=== PATIENT | female | born 1980 | race Caucasian/White ===

== ENCOUNTER 2019-11-27 00:54 | Emergency (ER) | payer OTHER ==
[~2019-11-27] VITALS: Ht 165.1 cm; Wt 95.2 kg
[~2019-11-27 00:54] MED LIST: NAPROXEN500 MG PO; NORCO 5-325 TA1 EACH PO; POTASSIUM CHLO20 ME1 PO; ZOFRAN ODT4 MG PO
--- NOTE | 2019-11-28 06:21 | EKG ---
[facility] [address] [place], [place] [address] Signed Normal sinus rhythm Normal ECG No previous ECGs available Confirmed by RAYMOND OLIVARES MD ([id number]) on 11/28/2019 6:21:14 AM Electronically Signed By: RAYMOND OLIVARES MD 11/28/19620 PATIENT NAME: CANDELARIO GOLDSTEIN Electrocardiogram DATE OF : 78 PHYSICIAN: RAYMOND OLIVARES MD REPORT #: [id number] REPORT IS CONFIDENTIAL AND NOT TO BE RELEASED WITHOUT AUTHORIZATION
== END 2019-11-27 03:10 | disposition home or self-care (01) ==
LOC: ED 00:54
DX: I10 Essential (primary) hypertension (principal); F17.200 Nicotine dependence, unspecified, uncomplicated; Z88.0 Allergy status to penicillin
CPT/HCPCS: 71046; 80053; 81001; 85025; 93005; 93010; 99284-25

== ENCOUNTER 2022-08-26 13:23 | Emergency (ER) | payer OTHER ==
[~2022-08-26] VITALS: Ht 165.1 cm; Wt 108.9 kg
== END 2022-08-26 16:34 | disposition home or self-care (01) ==
LOC: ED 13:23
DX: S86.012A Strain of left Achilles tendon, initial encounter (principal); X50.9XXA Other and unspecified overexertion or strenuous movements or postures, initial encounter; Y99.0 Civilian activity done for income or pay; F17.200 Nicotine dependence, unspecified, uncomplicated; Z88.0 Allergy status to penicillin
CPT/HCPCS: 73610; 99283-25

== ENCOUNTER 2025-02-22 22:29 | Emergency (ER) | payer OTHER ==
[~2025-02-22] VITALS: Ht 165.1 cm; Wt 115.7 kg
[2025-02-22 23:45] LABS: BASOPHILS 0.8 % (0-2); EOSINOPHILS 2.4 % (0-6); HEMATOCRIT 38.1 % (35.0-50.0); HEMOGLOBIN 13.4 g/dL (12.0-18.0); LYMPHOCYTES 35.7 % (24-44); MCH 30.9 (27-36); MCHC 35.1 g/dl (30-36); MONOCYTES 7.3 % (0-12); NEUTROPHILS 53.8 % (39-80); PLATELET COUNT 240 K/uL (140-440); RBC 4.33 M/ul (4.3-5.7); RDW 12.6 (10.5-15.0)
[2025-02-22] MEDS ORDERED: MORPHINE SULFATE 4 MG/ML VIAL IV ONE (23:45)
[2025-02-22] MEDS ORDERED: METOPROLOL TARTRATE 5 MG/5 ML VIAL IV ONE (23:45)
[2025-02-22] MEDS ORDERED: ondansetron HCL 4 MG/2 ML VIAL IV ONE (23:45)
[2025-02-22] MEDS ORDERED: LACTATED RINGER'S 1,000 ML IV ONE (23:45)
[2025-02-23 00:07] LABS: ALBUMIN 3.9 g/dL (3.4-5.0); ALBUMIN/GLOBULIN RATIO 1.22 (1.1-2.4); ANION GAP 12.7 (7-21); BILIRUBIN, TOTAL 0.3 mg/dL (0.2-1.0); BUN/CREATININE RATIO 14.47 (6.0-28.6); CALCIUM 8.7 mg/dL (8.5-10.1); CREATININE, SERUM 0.76 mg/dL (0.55-1.02); POTASSIUM 3.7 mmol/L (3.5-5.1); PROTEIN, TOTAL 7.1 g/dL (6.4-8.2)
[2025-02-23 01:25] LABS: BILIRUBIN, URINE NEGATIVE (negative); BLOOD/HGB, URINE TRACE-L (Negative); KETONE, URINE NEGATIVE (Negative); LEUK ESTERASE, URINE LARGE (negative); NITRITE, URINE NEGATIVE (negative)
[2025-02-23 01:36] LABS: BACTERIA, URINE 2+ /hpf (negative); CASTS, URINE NONE SEEN \\lpf; CRYSTALS, URINE NONE SEEN (0-1+); EPITHELIAL CELLS, URINE SQUAMOUS 2+ /lpf (0-1+); WHITE BLOOD CELLS, URINE 21-40 /HPF (0-5)
[2025-02-23 01:37] LABS: COLLECTION TYPE, URINE CLEAN CATCH; REFLEX CULTURE, URINE No (No)
[2025-02-23 02:09] VITALS: BP 118/85
== END 2025-02-23 02:08 | disposition home or self-care (01) ==
LOC: ED 22:29
PROVIDERS: Internal Medicine
DX: G43.909 Migraine, unspecified, not intractable, without status migrainosus (principal); Z88.0 Allergy status to penicillin; F17.200 Nicotine dependence, unspecified, uncomplicated
CPT/HCPCS: 36415; 70450; 80053; 81001; 83735; 84703; 85025; 96374; 96375; 99284-25; J2270; J2405; J7121

== ENCOUNTER 2025-09-15 19:00 | Emergency (ER) | payer OTHER ==
[~2025-09-15] VITALS: Ht 165.1 cm; Wt 96.7 kg
[2025-09-15] MEDS ORDERED: TOPAMAX50 MG PO (19:47)
[2025-09-15] MEDS ORDERED: ZEPBOUND5 MG/0.5 M SUB-Q (19:49)
[2025-09-15 19:52] LABS: BASOPHILS 0.4 % (0.1-1.2); EOSINOPHILS 1.5 % (0.7-5.8); LYMPHOCYTES 28.0 % (19.3-51.7); MCH 30.6 PG (25.6-32.2); MCHC 33.7 g/dL (32.2-35.5); MCV 90.9 fL (79.4-94.8); MONOCYTES 6.9 % (4.7-12.5); NEUTROPHILS 63.0 % (34.0-71.1); RBC 4.41 M/uL (3.93-5.22)
[2025-09-15 20:02] LABS: ALT (SGPT) 50.0 U/L (14-59); AST (SGOT) 23.0 U/L (15-37); GLOMERULAR FILTRATION RATE,EST 109.0 mL/min (>60); PROTEIN, TOTAL 7.4 g/dL (6.4-8.2); UREA NITROGEN 26.0 mg/dL (7-18)
[2025-09-15 21:17] LABS: BLOOD/HGB, URINE SMALL (Negative); KETONE, URINE NEGATIVE (Negative); LEUK ESTERASE, URINE LARGE (negative); NITRITE, URINE NEGATIVE (negative)
[2025-09-15 21:27] LABS: BACTERIA, URINE 2+ /hpf (negative); CASTS, URINE NONE SEEN \\lpf; CRYSTALS, URINE NONE SEEN (0-1+); EPITHELIAL CELLS, URINE SQUAMOUS 2+ /lpf (0-1+); REFLEX CULTURE, URINE No (No)
[2025-09-15] MEDS ORDERED: MACROBID 100 M100 MG PO (22:00)
[2025-09-15] MEDS ORDERED: NITROFURANTOIN MONOHYD MACROCR 100 MG HOME.PACK PO ONE (22:15)
[2025-09-15] MEDS ORDERED: HYDROCODONE BIT/ACETAMINOPHEN 5/325 MG 1 TAB HOME.PACK PO ONE (22:15)
[2025-09-15 22:21] VITALS: BP 110/79
== END 2025-09-15 22:22 | disposition home or self-care (01) ==
LOC: ED 19:00
PROVIDERS: Family Medicine
DX: N39.0 Urinary tract infection, site not specified (principal); F17.200 Nicotine dependence, unspecified, uncomplicated; Z79.899 Other long term (current) drug therapy; Z88.0 Allergy status to penicillin
CPT/HCPCS: 36415; 80053; 81001; 83690; 84703; 85025; 99284; A9270

== ENCOUNTER 2025-09-23 15:20 | Emergency (ER) | payer OTHER ==
[~2025-09-23] VITALS: Ht 165.1 cm; Wt 94.0 kg
--- OUTSIDE RECORDS SUMMARY | ~2025-09-23 | XMS | Continuity of Care Document ---
Demographics + + + | Address | [address] | | | [place] [address] | + + + | Preferred Language | Unknown | + + + | Marital Status | Never | + + + | Religion Affiliation | Unknown | + + + | Race | White | + + + | Ethnic Group | Not or | + + + Author + + + | Author | [facility] | + + + | Organization | [facility] | + + + | Address | [address] | | | [place] [address] | + + + | Phone | | + + + Care Team Providers + + + + | Care Bone Density Technician Name | Role | Phone | + + + + Unavailable | Unavailable | + + + + Unavailable | Unavailable | + + + + Allergies No information. Encounters No information. Functional Status No information. Immunizations No information. Medications + + + + | date | description | facility | + + + + | (no date) | TOPIRAMATE | [facility] | | | | [facility] | + + + + | (no date) | Tirzep[facility] | [facility] | + + + + | 2025-09-15 00:00 | NITROFURANTOIN MONOHYD | [facility] | | | MACROCR | [facility] | + + + + | (no date) | HYDROCODONE | [facility] | | | BIT/ACETAMINOPHEN | [facility] | + + + + Problems + + + + | date | description | facility | + + + + | 2025-09-15 00:00 | Ur[facility] tract infection | [facility] | | | | [facility] | + + + + Procedures No information. Results/Labs +--------+--------+ +---------+--------+---------+ | test | date | facility | value | unit | notes | +--------+--------+ +---------+--------+---------+ + + | Result panel 1 | + + + + + +--------+ + + | WBC # Bld | 2025-09-15 | | 5.22 | (missing) | (missing) | | Auto | 19:38:07 | [facility] | | | | + + + +--------+ + + + + | Result panel 2 | + + + + + +--------+ + + | Lymphocytes | 2025-09-15 | | 28.0 | (missing) | (missing) | | NFr Bld | 19:38:07 | [facility] | | | | | Auto | [facility] | | | | + + + +--------+ + + + + | Result panel 3 | + + + + + +-------+ + + | Monocytes | 2025-09-15 | | 6.9 | (missing) | (missing) | | NFr Bld Auto | 19:38:07 | [facility] | | | | + + + +-------+ + + + + | Result panel 4 | + + + + + +-------+ + + | Eosinophil | 2025-09-15 | | 1.5 | (missing) | (missing) | | NFr Bld Auto | 19:38:07 | [facility] | | | | + + + +-------+ + + + + | Result panel 5 | + + + + + +-------+ + + | Basophils | 2025-09-15 | | 0.4 | (missing) | (missing) | | NFr Bld Auto | 19:38:07 | [facility] | | | | + + + +-------+ + + + + | Result panel 6 | + + + + + +--------+ + + | RBC # Bld | 2025-09-15 | | 4.41 | (missing) | (missing) | | Auto | 19:38:07 | [facility] | | | | + + + +--------+ + + + + | Result panel 7 | + + + + + +--------+ + + | Hgb | 2025-09-15 | | 13.5 | (missing) | (missing) | | Bld-[facility] | 19:38:07 | [facility] | | | | + + + +--------+ + + + + | Result panel 8 | + + + + + +------+---------+ + | Glucose | 2025-09-15 | | 87 | mg/dL | (missing) | | SerPl-mCnc | 19:38:07 | [facility] | | | | + + + +------+---------+ + + + | Result panel 9 | + + + + + +------+---------+ + | BUN | 2025-09-15 | | 26 | mg/dL | (missing) | | SerPl-[facility] | 19:38:07 | [facility] | | | | + + + +------+---------+ + + + | Result panel 10 | + + + + + +--------+---------+ + | Creat | 2025-09-15 | | 0.66 | mg/dL | (missing) | | SerPl-mCnc | 19:38:07 | [facility] | | | | + + + +--------+---------+ + + + | Result panel 11 | + + + + + +-------+ + + | eGFRcr | 2025-09-15 | | 109 | (missing) | (missing) | | SerPlBld | 19:38:07 | [facility] | | | | | CKD-EPI 2020 | [facility] | | | | + + + +-------+ + + + + | Result panel 12 | + + + + + +---------+ + + | BUN/Creat | 2025-09-15 | | 39.39 | (missing) | (missing) | | SerPl | 19:38:07 | [facility] | | | | + + + +---------+ + + + + | Result panel 13 | + + + + + +-------+ + + | Sodium | 2025-09-15 | | 140 | (missing) | (missing) | | SerPl-sCnc | 19:38:07 | [facility] | | | | + + + +-------+ + + + + | Result panel 14 | + + + + + +--------+ + + | Hct VFr.DF | 2025-09-15 | | 40.1 | (missing) | (missing) | | Bld Auto | 19:38:07 | [facility] | | | | + + + +--------+ + + + + | Result panel 15 | + + + + + +-------+ + + | Potassium | 2025-09-15 | | 4.2 | (missing) | (missing) | | SerPl-sCnc | 19:38:07 | [facility] | | | | + + + +-------+ + + + + | Result panel 16 | + + + + + +-------+ + + | Chloride | 2025-09-15 | | 106 | (missing) | (missing) | | [facility] | 19:38:07 | [facility] | | | | + + + +-------+ + + + + | Result panel 17 | + + + + + +------+ + + | CO2 | 2025-09-15 | | 23 | (missing) | (missing) | | SerPl-sCnc | 19:38:07 | [facility] | | | | + + + +------+ + + + + | Result panel 18 | + + + + + +--------+ + + | Anion Gap | 2025-09-15 | | 15.2 | (missing) | (missing) | | SerPl | 19:38:07 | [facility] | | | | | Calculated.4 | [facility] | | | | + + + +--------+ + + + + | Result panel 19 | + + + + + +-------+---------+ + | Calcium | 2025-09-15 | | 9.3 | mg/dL | (missing) | | [facility] | 19:38:07 | [facility] | | | | + + + +-------+---------+ + + + | Result panel 20 | + + + + + +-------+ + + | Prot | 2025-09-15 | | 7.4 | (missing) | (missing) | | [facility] | 19:38:07 | [facility] | | | | + + + +-------+ + + + + | Result panel 21 | + + + + + +-------+ + + | Albumin | 2025-09-15 | | 4.2 | (missing) | (missing) | | SerPl-[facility] | 19:38:07 | [facility] | | | | + + + +-------+ + + + + | Result panel 22 | + + + + + +-------+ + + | Globulin | 2025-09-15 | | 3.2 | (missing) | (missing) | | Ser-[facility] | 19:38:07 | [facility] | | | | + + + +-------+ + + + + | Result panel 23 | + + + + + +--------+ + + | | 2025-09-15 | | 1.31 | (missing) | (missing) | | Albumin/Glob | 19:38:07 | [facility] | | | | | SerPl | [facility] | | | | + + + +--------+ + + + + | Result panel 24 | + + + + + +-------+---------+ + | Bilirub | 2025-09-15 | | 0.4 | mg/dL | (missing) | | SerPl-mCnc | 19:38:07 | [facility] | | | | + + + +-------+---------+ + + + | Result panel 25 | + + + + + +--------+ + + | RBC Auto | 2025-09-15 | | 90.9 | (missing) | (missing) | | | 19:38:07 | [facility] | | | | + + + +--------+ + + + + | Result panel 26 | + + + + + +------+ + + | AST | 2025-09-15 | | 23 | (missing) | (missing) | | SerPl-cCnc | 19:38:07 | [facility] | | | | + + + +------+ + + + + | Result panel 27 | + + + + + +------+ + + | ALT | 2025-09-15 | | 50 | (missing) | (missing) | | SerPl-cCnc | 19:38:07 | [facility] | | | | + + + +------+ + + + + | Result panel 28 | + + + + + +------+ + + | ALP | 2025-09-15 | | 79 | (missing) | (missing) | | SerPl-cCnc | 19:38:07 | [facility] | | | | + + + +------+ + + + + | Result panel 29 | + + + + + +------+ + + | Lipase | 2025-09-15 | | 69 | (missing) | (missing) | | SerPl-cCnc | 19:38:07 | [facility] | | | | + + + +------+ + + + + | Result panel 30 | + + + + + + + + + | HCG SerPl | 2025-09-15 | | NEGATIVE | (missing) | (missing) | | Ql | 19:38:07 | [facility] | | | | + + + + + + + + + | Result panel 31 | + + + + + +--------+ + + | MCH RBC Qn | 2025-09-15 | | 30.6 | (missing) | (missing) | | Auto | 19:38:07 | [facility] | | | | + + + +--------+ + + + + | Result panel 32 | + + + + + +--------+ + + | MCHC RBC | 2025-09-15 | | 33.7 | (missing) | (missing) | | Auto-EntMCnc | 19:38:07 | [facility] | | | | + + + +--------+ + + + + | Result panel 33 | + + + + + +-------+ + + | Platelet # | 2025-09-15 | | 210 | (missing) | (missing) | | Bld Auto | 19:38:07 | [facility] | | | | + + + +-------+ + + + + | Result panel 34 | + + + + + +--------+ + + | Neutrophils | 2025-09-15 | | 63.0 | (missing) | (missing) | | NFr Bld | 19:38:07 | [facility] | | | | | Auto | [facility] | | | | + + + +--------+ + + + + | Result panel 35 | + + + + + + + + + | Color Ur | 2025-09-15 | | YELLOW | (missing) | (missing) | | Auto | 21:10:07 | [facility] | | | | + + + + + + + + + | Result panel 36 | + + + + + +---------+ + + | Character | 2025-09-15 | | CLEAR | (missing) | (missing) | | Ur | 21:10:07 | [facility] | | | | + + + +---------+ + + + + | Result panel 37 | + + + + + + + + + | Glucose Ur | 2025-09-15 | | NEGATIVE | (missing) | (missing) | | Ql Strip | 21:10:07 | [facility] | | | | + + + + + + + + + | Result panel 38 | + + + + + + + + + | Antonella Ur | 2025-09-15 | | NEGATIVE | (missing) | (missing) | | Ql Strip | 21:10:07 | [facility] | | | | + + + + + + + + + | Result panel 39 | + + + + + + + + + | Ketones Ur | 2025-09-15 | | NEGATIVE | (missing) | (missing) | | Ql Strip | 21:10:07 | [facility] | | | | + + + + + + + + + | Result panel 40 | + + + + + + + + + | Sp Gr Ur | 2025-09-15 | | <=1.005 | (missing) | (missing) | | Strip | 21:10:07 | [facility] | | | | + + + + + + + + + | Result panel 41 | + + + + + +---------+ + + | Hgb Ur Ql | 2025-09-15 | | SMALL | (missing) | (missing) | | Strip | 21:10:07 | [facility] | | | | + + + +---------+ + + + + | Result panel 42 | + + + + + +-------+ + + | pH Ur Strip | 2025-09-15 | | 6.5 | (missing) | (missing) | | | 21:10:07 | [facility] | | | | + + + +-------+ + + + + | Result panel 43 | + + + + + + + + + | Prot Ur | 2025-09-15 | | NEGATIVE | (missing) | (missing) | | Strip-mCnc | 21:10:07 | [facility] | | | | + + + + + + + + + | Result panel 44 | + + + + + + + + + | | 2025-09-15 | | NORMAL | (missing) | (missing) | | Urobilinogen | 21:10:07 | [facility] | | | | | Ur | [facility] | | | | + + + + + + + + + | Result panel 45 | + + + + + + + + + | Nitrite Ur | 2025-09-15 | | NEGATIVE | (missing) | (missing) | | Ql Strip | 21:10:07 | [facility] | | | | + + + + + + + + + | Result panel 46 | + + + + + +---------+ + + | Leukocyte | 2025-09-15 | | LARGE | (missing) | (missing) | | esterase Ur | 21:10:07 | [facility] | | | | | Ql Strip | [facility] | | | | + + + +---------+ + + + + | Result panel 47 | + + + + + +-------+ + + | RBC #/area | 2025-09-15 | | 4-6 | (missing) | (missing) | | UrnS HPF | 21:10:07 | [facility] | | | | + + + +-------+ + + + + | Result panel 48 | + + + + + +---------+ + + | WBC #/area | 2025-09-15 | | 41-50 | (missing) | (missing) | | [facility] | 21:10:07 | [facility] | | | | + + + +---------+ + + + + | Result panel 49 | + + + + + + + + + | Epi Cells | 2025-09-15 | | SQUAMOUS 2+ | (missing) | (missing) | | #/area UrnS | 21:10:07 | [facility] | | | | | HPF | [facility] | | | | + + + + + + + + + | Result panel 50 | + + + + + + + + + | Crystals | 2025-09-15 | | NONE SEEN | (missing) | (missing) | | UrnS Micro | 21:10:07 | [facility] | | | | | | [facility] | | | | + + + + + + + + + | Result panel 51 | + + + + + +------+ + + | Bacteria | 2025-09-15 | | 2+ | (missing) | (missing) | | #/area UrnS | 21:10:07 | [facility] | | | | | HPF | [facility] | | | | + + + +------+ + + + + | Result panel 52 | + + + + + + + + + | Casts | 2025-09-15 | | NONE SEEN | (missing) | (missing) | | #/area UrnS | 21:10:07 | [facility] | | | | | LPF | [facility] | | | | + + + + + + + + + | Result panel 53 | + + + + + +------+ + + | Bacteria Ur | 2025-09-15 | | No | (missing) | (missing) | | Cult | 21:10:07 | [facility] | | | | [facility] | | | | + + + +------+ + + + + | Result panel 54 | + + + + + + + + + | Urn Spec | 2025-09-15 | | CLEAN CATCH | (missing) | (missing) | | Collect Meth | 21:10:07 | [facility] | | | | | Ur | [facility] | | | | + + + + + + + Social History +--------+ + + | date | description | facility | +--------+ + + Vital Signs + + + +---------+ | date | measurement | value | units | + + + +---------+ | 2025-09-15 00:00 | BMI | 35.5 | kg/m2 | + + + +---------+ | 2025-09-15 00:00 | BP_diastolic | 79 | mmHg | + + + +---------+ | 2025-09-15 00:00 | BP_systolic | 110 | mmHg | + + + +---------+ | 2025-09-15 00:00 | heart_rate | 90 | /min | + + + +---------+ | 2025-09-15 00:00 | height_metric | 165.1 | cm | + + + +---------+ | 2025-09-15 00:00 | height_standard | 65 | in | + + + +---------+ | 2025-09-15 00:00 | o2_saturation | 100 | % | + + + +---------+ | 2025-09-15 00:00 | respiration_rate | 16 | /min | + + + +---------+ | 2025-09-15 00:00 | | 98.4 | F | | | temperature_standar | | | | | d | | | + + + +---------+ | 2025-09-15 00:00 | weight_metric | 96.7 | kg | + + + +---------+ | 2025-09-15 00:00 | weight_standard | 213.187 | lb | + + + +---------+"
[~2025-09-23 15:20] MED LIST changes: +MACROBID 100 M100 MG PO; +TOPAMAX50 MG PO; +ZEPBOUND5 MG/0.5 M SUB-Q
--- OUTSIDE RECORDS SUMMARY | 2025-09-23 15:27 | XMS ---
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 Jonathan VISIT COUNT (12 MO.) 3 [facility] TOTAL 3 NOTE: Visits indicate total known visits. ED/C VISIT TRACKING (12 MO.) 09/23/2025 15:21 [facility] [place] TYPE: Emergency COMPLAINT: - ABDOMINAL PAIN 09/15/2025 19:01 [facility] [place] TYPE: Emergency COMPLAINT: - ABDOMINAL PAIN DIAGNOSES: - Allergy status to penicillin - Left upper quadrant pain - Nicotine dependence, unspecified, uncomplicated - Other half-way (current) drug therapy - Urinary tract infection, site not specified 02/22/2025 22:29 [facility] [place] TYPE: Emergency COMPLAINT: - BLOOD PRESSURE PROBLEMS DIAGNOSES: - Allergy status to penicillin - Headache, unspecified - Migraine, unspecified, not intractable, without status migrainosus - Nicotine dependence, unspecified, uncomplicated INPATIENT VISIT TRACKING (12 MO.) No inpatient visits to display in this time frame [id number]
[2025-09-23 16:16] LABS: BASOPHILS 0.6 % (0.1-1.2); EOSINOPHILS 2.5 % (0.7-5.8); LYMPHOCYTES 28.5 % (19.3-51.7); MCH 30.5 PG (25.6-32.2); MCHC 33.5 g/dL (32.2-35.5); MCV 91.1 fL (79.4-94.8); MONOCYTES 7.3 % (4.7-12.5); NEUTROPHILS 60.9 % (34.0-71.1); RBC 4.49 M/uL (3.93-5.22)
[2025-09-23 16:32] LABS: ALT (SGPT) 62.0 U/L (14-59); AST (SGOT) 25.0 U/L (15-37); GLOMERULAR FILTRATION RATE,EST 101.0 mL/min (>60); PROTEIN, TOTAL 7.5 g/dL (6.4-8.2); UREA NITROGEN 24.0 mg/dL (7-18)
[2025-09-23] MEDS ORDERED: ACETAMINOPHEN 500 MG TAB PO ONE (17:00)
[2025-09-23 18:18] LABS: BLOOD/HGB, URINE TRACE-I (Negative); KETONE, URINE SMALL (Negative); LEUK ESTERASE, URINE MODERATE (negative); NITRITE, URINE NEGATIVE (negative)
[2025-09-23 18:26] LABS: BACTERIA, URINE RARE /hpf (negative); CASTS, URINE NONE SEEN \\lpf; CRYSTALS, URINE NONE SEEN (0-1+); EPITHELIAL CELLS, URINE SQUAMOUS 4+ /lpf (0-1+); REFLEX CULTURE, URINE No (No)
[2025-09-23 18:34] VITALS: BP 103/77
== END 2025-09-23 18:39 | disposition home or self-care (01) ==
LOC: ED 15:20
PROVIDERS: Emergency Medicine
DX: R10.33 Periumbilical pain (principal); F17.200 Nicotine dependence, unspecified, uncomplicated; Z88.0 Allergy status to penicillin
CPT/HCPCS: 36415; 74177; 80053; 81001; 83690; 84703; 85025; 99284-25; A9270; Q9967